=== PATIENT | female | born 1945 | race Caucasian/White ===

== ENCOUNTER 2017-06-02 16:28 | Outpatient (CLI) | payer OTHER | END 2017-06-02 19:28 | disposition home or self-care (01) | LOC: SRD 16:28 | PROVIDERS: ATTEND Orthopaedic Surgery | DX: Z01.818 Encounter for other preprocedural examination (principal); I70.90 Unspecified atherosclerosis; M41.84 Other forms of scoliosis, thoracic region; M25.562 Pain in left knee | CPT/HCPCS: 71020-TC ==